=== PATIENT | female | born 1955 | race Caucasian/White ===

== ENCOUNTER 2018-12-03 16:38 | Emergency (ER) | payer MEDICARE ==
[~2018-12-03] VITALS: Ht 157.5 cm; Wt 90.5 kg
[2018-12-03 16:43] VITALS: TEMP 98
[2018-12-03 17:02] LABS: COLLECTION METHOD CLEAN CATCH
[2018-12-03 17:15] LABS: PH 5 (5-8); SQUAMOUS EPITHELIAL None Seen /hpf; URINE APPEARANCE Clear; URINE BACTERIA None Seen /hpf; URINE BILIRUBIN Negative (NEGATIVE); URINE BLOOD Negative (NEGATIVE); URINE COLOR Yellow; URINE GLUCOSE Negative (NEGATIVE); URINE KETONE Negative (NEGATIVE); URINE LEUKOCYTE ESTERASE Negative (NEGATIVE); URINE NITRATE Negative (NEGATIVE); URINE PROTEIN(semi-quant) Negative (NEGATIVE); URINE UROBILINOGEN Negative (NEGATIVE)
[2018-12-03] MEDS ORDERED: NEURONTIN300 MG/CAP PO (17:17)
[2018-12-03] MEDS ORDERED: PLAQUENIL 200M200 MG PO (17:17)
[2018-12-03] MEDS ORDERED: ASPIRIN 81M81 MG/TA2 PO (17:17)
[2018-12-03] MEDS ORDERED: PHARMASSURE CHE30 MG PO (17:19)
[2018-12-03] MEDS ORDERED: ULTRAM 50MG TAB50 MG (17:19)
[2018-12-03] MEDS ORDERED: TENORMIN 2525 MG/TAB PO (17:19)
[2018-12-03] MEDS ORDERED: NATURE'S BLE1000 MCG (17:19)
[2018-12-03] MEDS ORDERED: CARDIZEM 30MG T30 MG PO (17:20)
[2018-12-03] MEDS ORDERED: B COMPLEX & B121 TAB (17:20)
[2018-12-03 17:35] LABS: BASO % 0.6 % (0.0-2.0); EOS # 0.2 (0.0-0.7); EOS % 2.8 % (0-4.0); GRAN # 3.6 (1.4-6.5); GRAN % 56.3 % (42.2-75.2); HEMATOCRIT 38.1 % (37.0-47.0); HEMOGLOBIN 12.3 g/dl (12.5-16.0); LYMPH # 2.1 (1.2-3.4); LYMPH % 31.9 % (20.0-51.0); MEAN CELL VOLUME 85 fl (80.0-100.0); MEAN CORPUSCULAR HEMOGLOBIN 28 pg (27.0-31.0); MEAN CORPUSCULAR HGB CONC 32 g/dl (33.0-37.0); MEAN PLATELET VOLUME 11.4 fl (7.4-10.4); MONO # 0.5 (0.1-0.6); MONO % 8.1 % (1.7-9.3); PLATELET COUNT 169 K/mm3 (130-400); RED BLOOD COUNT 4.47 M/mm3 (4.10-5.30)
[2018-12-03 17:46] LABS: ALBUMIN 3.7 gm/dL (3.5-5.0); BILIRUBIN,TOTAL 0.3 mg/dL (0.0-1.0); CALCIUM 8.9 mg/dL (8.4-10.2); CREATININE, serum 0.45 (0.52-1.25); POTASSIUM 4.8 mmol/L (3.4-5.0)
[2018-12-03 17:47] LABS: C-REACTIVE PROTEIN 0.5 mg/dL (0.0-0.9)
[2018-12-03 20:30] VITALS: BP 124/48; PULSE 65
== END 2018-12-03 20:39 | disposition home or self-care (01) ==
LOC: COL.ER 16:38
PROVIDERS: Emergency Medicine; Nurse Practitioner
DX: R10.32 Left lower quadrant pain (principal); M06.9 Rheumatoid arthritis, unspecified; M79.7 Fibromyalgia; I48.91 Unspecified atrial fibrillation; Z87.442 Personal history of urinary calculi; Z90.710 Acquired absence of both cervix and uterus; Z90.49 Acquired absence of other specified parts of digestive tract; Z79.82 Long term (current) use of aspirin
CPT/HCPCS: J2270; J2405; J7030

== ENCOUNTER → 2020-03-28 | Outpatient (CLI) | payer MEDICARE ==
[~2020-03-28] MED LIST: ASPIRIN 81M81 MG/TA2 PO; B COMPLEX & B121 TAB; CARDIZEM 30MG T30 MG PO; NATURE'S BLE1000 MCG; NEURONTIN300 MG/CAP PO; PHARMASSURE CHE30 MG PO; PLAQUENIL 200M200 MG PO; TENORMIN 2525 MG/TAB PO; ULTRAM 50MG TAB50 MG
== END ==
LOC: COL.RAD 12:18
DX: M19.012 Primary osteoarthritis, left shoulder (principal)